=== PATIENT | male | born 1995 | race Caucasian/White ===

== ENCOUNTER 2020-12-11 13:40 | Emergency (ER) | payer BC, SELFPAY ==
[2020-12-11 13:53] VITALS: BP 120/67; PULSE 111; RESP 14; TEMP 36.7; O2SAT 99
[2020-12-11 15:42] LABS: Add Urine Microscopic? YES; Appearance Urine Cloudy (Clear); Bacteria Urine Trace /hpf; Bilirubin Urine Negative (Negative); Color Urine Yellow (Yellow); Glucose Urine UA Negative (Negative); Ketones Urine Negative (Negative); Leukocyte Esterase Ur 3+ LEU/UL (Negative); Mucus Urine Few /lpf; Nitrate Urine Negative (Negative); Protein Urine 1+ mg/dL (Negative); RBC Urine >75 /hpf (0-2); Specific Grav Ur 1.024 (1.001-1.035); WBC Urine >75 /hpf
--- NOTE | 2020-12-11 15:42 | ED.MALEGU ---
HPI - Male Genitourinary General Chief complaint: Urogenital-Male Stated complaint: PENILE D/C Time Seen by Provider: 12/11/20 14:21 Source: patient Mode of arrival: ambulatory Limitations: no limitations History of Present Illness HPI Narrative: This is a 25-year-old male that presents the emergency department for urethral discharge noted over the last couple of days. Reports painful urination. Denies fever, vomiting, other genital lesions, or hematuria. Related Data Allergies Allergy/AdvReac Type Severity Reaction Status Date / Time No Known Allergies Allergy Verified 12/11/20 14:29 Review of Systems Review of Systems: CONSTITUTIONAL: Denies fever GASTROINTESTINAL: Denies abdominal pain, nausea, vomiting GENITOURINARY: Reports dysuria. Denies hematuria. SKIN: Denies rash All systems reviewed & are unremarkable except as noted in HPI and below PMFSH Past Medical History Medical History (Updated 12/11/20 @ 16:29 by Gina Dumont PA-C) No active medical problems Social History Social History (Updated 12/11/20 @ 15:44 by Gina Dumont PA-C) Substance use: never Exam Narrative: GENERAL: Well-appearing, well-nourished, and in no acute distress. HEAD: Normocephalic, atraumatic. EYES: EOMI. CHEST: Clear to auscultation. No respiratory distress. No wheezes rales or rhonchi HEART: Regular rate and rhythm. No murmur heard. Normal peripheral pulses. ABDOMEN: Soft, nontender, nondistended, normal active bowel sounds. EXTREMITIES: Normal range of motion. No edema. SKIN: Warm, dry, no rash. NEURO: No focal deficits. Alert and oriented x3. PSYCH: Normal mood and affect MALE GENITAL: Clear/yellow urethral discharge noted. No other rashes or lesions. Testicles nontender Course Vital Signs Vital signs: Vital Signs Temperature 98.1 F 12/11/20 13:53 Pulse Rate 111 H 12/11/20 13:53 Respiratory Rate 14 12/11/20 13:53 Blood Pressure 120/67 12/11/20 13:53 Pulse Oximetry 99 12/11/20 13:53 Temperature 98.1 F 12/11/20 13:53 Pulse Rate 111 H 12/11/20 13:53 Respiratory Rate 14 12/11/20 13:53 Blood Pressure 120/67 12/11/20 13:53 Pulse Oximetry 99 12/11/20 13:53 MDM - Male Genitourinary MDM Narrative Medical decision making narrative: Patient presents to the emergency department for urethral discharge noted over the last couple of days. UA is consistent with infection. Patient will be treated with oral antibiotics for urethritis. He is to follow-up with primary doctor for further results of testing. He was given warnings to return to the ER Lab Data Attestation: I reviewed the patient's lab results. Labs: Lab Results 12/11/20 12/11/20 Range/Units 15:27 15:27 Urine Color Yellow (Yellow) Urine Appearance Cloudy H (Clear) Urine pH 7.0 (5.0-9.0) Ur Specific [place] 1.024 (1.001-1.035) Urine Protein 1+ H (Negative) mg/dL Urine Glucose (UA) Negative (Negative) mg/dL Urine Ketones Negative (Negative) mg/dL Ur Blood (Man) Negative (Negative) Urine Nitrate Negative (Negative) Urine Bilirubin Negative (Negative) Urine Urobilinogen 4.0 H (<2.0) mg/dL Leukocyte Esterase Rfl 3+ H (Negative) NAIDA/UL Urine RBC >75 H (0-2) /hpf Urine WBC >75 H /hpf Urine Bacteria Trace /hpf Urine Mucus Few H /lpf C.trachomatis RNA (TMA) Pending N.gonorrhoeae RNA (TMA) Pending T. vaginalis Amp RNA Pending Urine Characteristics Clear Critical Care Time Critical Care Time Critical Care Time: No Discharge Plan Discharge Clinical Impression: Epididymitis Patient Disposition: Home, Self-Care Condition: Stable Instructions: Antibiotic Form, Safe Sex Practices (ED), Epididymitis (ED) Additional Instructions: Return to the ER if you experience fever, abdominal pain with nausea and vomiting, you are unable to keep down liquids or solids, blood in the u
[2020-12-11 15:50] LABS: Blood Urine Negative (Negative)
[2020-12-11] MEDS: cefTRIAXone 1 GM VIAL 0.5 GM IM (16:26)
[2020-12-11 16:50] VITALS: BP 112/62; PULSE 94; RESP 16; O2SAT 99
== END 2020-12-11 16:50 | disposition home or self-care (01) ==
PROVIDERS: Physician Assistant; Emergency Provider Emergency Medicine
DX: N45.1 Epididymitis (principal)
CPT/HCPCS: 81001; 87086; 87491; 87591; 87661; 96372; 99283; J0696

== ENCOUNTER 2021-03-17 18:55 | Emergency (ER) | payer OTHER, BC, SELFPAY ==
--- NOTE | ~2021-03-17 | CT_ITS ---
EXAMINATION: CT brain wo con EXAM DATE: 03/17/2021 21:32 INDICATION: Right frontal head injury. TECHNIQUE: Spiral CT of the head was performed without contrast. Axial, coronal and sagittal images were reviewed. The dose-length product (DLP) for this examination was 605.33 mGy-cm. The exposure w as tailored according to patient size, and iterative reconstruction (ASIR) was used as additional dos e reduction technique. There is no prior study for comparison. FINDINGS: There is no acute intraparenchymal hemorrhage. No evidence of intraparenchymal brain mass lesion. No evidence of acute infarction. There is no mass effect or midline shift. The ventricles are normal in size. There are no extra-axial collections. There are no acute calvarial fractures. T he orbits are unremarkable. Right frontal laceration, contusion. The visualized sinuses and mastoid air cells are well aerated. IMPRESSION: 1. No acute intracranial findings. 2. Right frontal laceration, small amount of swelling. Reviewed, dictated and finalized at location [facility]. 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
[2021-03-17 19:14] VITALS: BP 146/77; PULSE 81; RESP 16; TEMP 36.6; O2SAT 100
--- NOTE | 2021-03-17 21:40 | ED.HEATRA ---
HPI - Head Injury General Chief complaint: Head Injury Stated complaint: HEAD INJURY Time Seen by Provider: 03/17/21 21:05 Source: patient Mode of arrival: ambulatory Limitations: no limitations History of Present Illness HPI Narrative: 25-year-old with no major medical problems here with complains of small laceration to the right side of the forehead. Patient states that he was hit with a door of the [employer] truck. Now complains of headache intermittent nausea. He also states that he cannot remember the events. Complaint: head injury and head pain Onset (ago): day(s) (6) Mechanism of Injury: other (Accidental) Place: work Loss of Consciousness: no Location of injury: frontal Severity: mild Quality: dull Radiation: none Other Injuries: none Related Data Allergies Allergy/AdvReac Type Severity Reaction Status Date / Time No Known Allergies Allergy Verified 03/17/21 20:56 Review of Systems Review of Systems: All systems reviewed & are unremarkable except as noted in HPI and below Constitutional: Constitutional: Reports no additional constitutional complaints Eyes: Eyes: Reports no additional eye complaints ENT: Reports system reviewed and no additional complaints, except as documented Cardiovascular: Cardiovascular: Reports no additional cardiovascular complaints Respiratory: Respiratory: Reports no additional respiratory complaints Gastrointestinal: Gastrointestinal: Reports no additional gastrointestinal complaints Musculoskeletal: Musculoskeletal: Reports no additional musculoskeletal complaints Integumentary/Breasts: Skin/Breast: Reports system reviewed and no additional complaints, except as docu Neurologic: Reports system reviewed and no additional complaints, except as documented PMFSH Past Medical History Medical History No active medical problems Social History Social History Substance use: never Exam Narrative: GENERAL: Well-appearing, well-nourished, and in no acute distress. HEAD: Normocephalic, atraumatic. Small laceration noted on the right side of the forehead with no active bleeding EYES: PERRLA and EOMI. ENT: Nares clear, no rhinorrhea or epistaxis. Mucous membranes moist. NECK: Supple. CHEST: Clear to auscultation. No respiratory distress. HEART: Regular rate and rhythm. No murmur heard. Normal peripheral pulses. EXTREMITIES: Normal range of motion. No edema. SKIN: Warm, dry, no rash. NEURO: No focal deficits. Alert and oriented x3. PSYCH: Normal mood and affect. Course Course Emergency Course: Patient comfortably sitting on the bed in no discomfort playing on his phone. Informed him about his CT findings. Advised him to take Tylenol for pain as needed follow-up with his primary doctor Vital Signs Vital signs: Vital Signs Temperature 36.6 C 03/17/21 19:14 Pulse Rate 81 03/17/21 19:14 Respiratory Rate 16 03/17/21 19:14 Blood Pressure 146/77 H 03/17/21 19:14 Pulse Oximetry 100 03/17/21 19:14 Temperature 36.6 C 03/17/21 19:14 Pulse Rate 81 03/17/21 19:14 Respiratory Rate 16 03/17/21 19:14 Blood Pressure 146/77 H 03/17/21 19:14 Pulse Oximetry 100 03/17/21 19:14 MDM - Head Injury Imaging Data Radiologist's impression: ITS Impressions Head CT 03/17/21 21:35 IMPRESSION: 1. No acute intracranial findings. 2. Right frontal laceration, small amount of swelling. Discharge Plan Discharge Clinical Impression: Minor head injury Qualifiers: Encounter type: initial encounter Qualified Code(s): S09.90XA - Unspecified injury of head, initial encounter Laceration of face Qualifiers: Encounter type: initial encounter Qualified Code(s): S01.81XA - Laceration without foreign body of other part of head, initial encounter Patient Disposition: Home, Self-Care Condition: Stable Instructions: Antibioti
== END 2021-03-17 21:57 | disposition home or self-care (01) ==
PROVIDERS: Emergency Provider Family Medicine
DX: S01.81XA Laceration without foreign body of other part of head, initial encounter (principal); W20.8XXA Other cause of strike by thrown, projected or falling object, initial encounter
CPT/HCPCS: 70450; 99284

== ENCOUNTER 2021-10-12 12:16 | Emergency (ER) | payer BC, SELFPAY ==
--- NOTE | ~2021-10-12 | CT_ITS ---
EXAMINATION: CT brain wo con DATE: 10/12/2021 12:52 INDICATION: Headache TECHNIQUE: Computed tomography (CT) of the head was performed without intravenous contrast. The mA wa s adjusted according to patient size. Iterative reconstruction technique was employed. Exam dose: 60 5.33 mGy-cm total exam DLP. COMPARISON: 03/17/2021 CT brain FINDINGS: No intracranial mass lesion or hemorrhage or cerebrovascular accident. No midline shift or mass effect. Normal arriola-white matter differentiation. Normal ventricular size. No subdural or epidur al hematoma is detected. No fracture or bone destruction of the cranial vault. Minimal focal soft tissue thickening is noted in the ethmoid regions included paranasal sinuses and m astoid air cells are otherwise normally developed and aerated. IMPRESSION: No significant intracranial abnormality Reviewed, dictated and finalized at [facility]. Reviewed, dictated and finalized at location [facility].
[2021-10-12 12:18] VITALS: BP 138/81; PULSE 64; RESP 20; TEMP 36.6; O2SAT 98
--- NOTE | 2021-10-12 12:42 | ED.DENTAL ---
HPI - Dental/Oral General Chief complaint: Dental/Oral Stated complaint: headache Time Seen by Provider: 10/12/21 12:25 Source: patient Mode of arrival: ambulatory Limitations: no limitations History of Present Illness HPI Narrative: This is a 26-year-old male that presents to the emergency department for a headache present over the last couple of weeks. Reports it is associated with a bad tooth. He has been seeing a dentist for this. He finished a round of antibiotics with little relief. He is scheduled to see an oral surgeon, but they were not available until December. Denies fever, vomiting, numbness, or weakness. MD Complaint: tooth pain Location: Tooth # (17) Related Data Allergies Allergy/AdvReac Type Severity Reaction Status Date / Time No Known Allergies Allergy Verified 03/17/21 20:56 Review of Systems Review of Systems: CONSTITUTIONAL: Denies fever ENT: Reports dentalgia EYES: Denies visual changes GASTROINTESTINAL: Denies vomiting NEUROLOGIC: Reports headache. Denies numbness, or weakness. All systems reviewed & are unremarkable except as noted in HPI and below PMFSH Past Medical History Medical History No active medical problems Social History Social History Substance use: never Exam Narrative: GENERAL: Well-appearing, well-nourished, and in no acute distress. HEAD: Normocephalic, atraumatic. EYES: PERRLA and EOMI. ENT: Nares clear, no rhinorrhea or epistaxis. Mucous membranes moist. Oropharynx without tonsillar hypertrophy exudate or other lesions. Bilateral TMs pearly arriola non-bulging. Tooth #17 is broken, no surrounding erythema or edema to suggest abscess NECK: Supple. No adenopathy or masses. CHEST: Clear to auscultation. No respiratory distress. No wheezes rales or rhonchi HEART: Regular rate and rhythm. No murmur heard. Normal peripheral pulses. EXTREMITIES: Normal range of motion. No edema. SKIN: Warm, dry, no rash. NEURO: No focal deficits. Alert and oriented x3. Cranial nerves II through XII grossly intact PSYCH: Normal mood and affect Course Vital Signs Vital signs: Vital Signs Temperature 97.9 F 10/12/21 12:18 Pulse Rate 64 10/12/21 12:18 Respiratory Rate 20 10/12/21 12:18 Blood Pressure 138/81 10/12/21 12:18 Pulse Oximetry 98 10/12/21 12:18 Oxygen Delivery Room Air 10/12/21 12:18 Temperature 97.9 F 10/12/21 12:18 Pulse Rate 64 10/12/21 12:18 Respiratory Rate 20 10/12/21 12:18 Blood Pressure 138/81 10/12/21 12:18 Pulse Oximetry 98 10/12/21 12:18 Oxygen Delivery Room Air 10/12/21 12:18 MDM - Dental/Oral MDM Narrative Medical decision making narrative: Patient presents to the emergency department for ongoing headaches associated with dental pain. No evidence for abscess on exam. He is afebrile and nontoxic-appearing. He is neurologically intact. CT scan of the brain is without concerning findings. Patient instructed to follow back up with his dentist. Reports improvement with Toradol and Tylenol. He was given warnings to return to the ER Imaging Data Radiologist's impression: ITS Impressions Head CT 10/12/21 12:54 IMPRESSION: No significant intracranial abnormality Critical Care Time Critical Care Time Critical Care Time: No Discharge Plan Discharge Clinical Impression: Toothache Headache Qualifiers: Headache type: unspecified Headache chronicity pattern: acute headache Intractability: not intractable Qualified Code(s): R51.9 - Headache, unspecified Patient Disposition: Home, Self-Care Condition: Stable Instructions: Acute Headache (ED), Toothache (ED) Additional Instructions: Return to the emergency department if you experience fever, vision changes, vomiting, sudden onset numbness or weakness, or any other symptoms that are concerning to you Tylenol as needed for pain.
[2021-10-12] MEDS: ONDANSETRON HCL ODT 4 MG TABLET PO (13:14)
[2021-10-12] MEDS: ACETAMINOPHEN 500 MG TABLET 1000 MG PO (13:14)
[2021-10-12] MEDS: KETOROLAC (*BKC) 60 MG/2 ML VIAL IM (13:14)
--- NOTE | 2021-10-12 13:18 | PC.NURSE ---
walked in an patient is pacing around the room running his hands over his head. He then sits down and is facetiming with his friends. he then got up and was pacing the room again.
== END 2021-10-12 14:44 | disposition home or self-care (01) ==
PROVIDERS: Emergency Provider Family Medicine
DX: R51.9 Headache, unspecified (principal); K08.89 Other specified disorders of teeth and supporting structures
CPT/HCPCS: 70450; 96372; 99284; A9270; J1885

== ENCOUNTER 2021-11-06 11:07 | Emergency (ER) | payer BC, SELFPAY ==
[2021-11-06 11:10] VITALS: BP 129/78; PULSE 97; RESP 14; TEMP 36.3; O2SAT 98
--- NOTE | 2021-11-06 11:12 | ED.DENTAL ---
HPI - Dental/Oral General Chief complaint: Dental/Oral Stated complaint: Toothache Time Seen by Provider: 11/06/21 11:15 Source: patient, RN notes reviewed and old records reviewed Mode of arrival: ambulatory Limitations: no limitations History of Present Illness HPI Narrative: 26-year-old male presents to the [facility] with left dental pain. States that he has seen dental school. Patient states that he needs someone to move up his appointment or to pull his tooth that is causing him issues. Decay noted to the posterior molar with surrounding erythema. Patient states he has used Anbesol with minimal relief. Patient is not a very good historian. MD Complaint: tooth pain Related Data Allergies Allergy/AdvReac Type Severity Reaction Status Date / Time No Known Allergies Allergy Verified 11/06/21 11:19 Review of Systems Review of Systems: All systems reviewed & are unremarkable except as noted in HPI and below Constitutional: Constitutional: Reports no additional constitutional complaints, Denies chills and Denies fever(s) Eyes: Eyes: Reports no additional eye complaints ENT: Reports as per HPI Comments: Dental pain Cardiovascular: Cardiovascular: Reports no additional cardiovascular complaints, Denies chest pain and Denies dyspnea Respiratory: Respiratory: Reports no additional respiratory complaints, Denies cough and Denies dyspnea Musculoskeletal: Musculoskeletal: Reports no additional musculoskeletal complaints Integumentary/Breasts: Skin/Breast: Reports system reviewed and no additional complaints, except as docu Neurologic: Reports system reviewed and no additional complaints, except as documented Psychiatric: Psychiatric: Reports no additional psychiatric complaints Allergic/Immunologic: Allergic/Immunologic: Reports no additional allergic/immunologic complaints PMFSH Past Medical History Medical History No active medical problems Social History Social History (Updated 11/06/21 @ 19:56 by Barbi Sanz APRN) Smoking status: Current every day smoker Substance use: current Substance use type: marijuana Living arrangements: with family Gender identity (if verbalized by the patient): Male Comments At the time of my signature, I reviewed and agree with the nursing past medical, surgical, social, and family history. There is no relevant family history pertinent to the patient complaint. Exam Const: General: healthy appearing, no acute distress and alert Nutritional Appearance: well nourished Orientation/consciousness: patient oriented x3 Limitations: no limitations HENMT: Head: normal to inspection Ears: external ears normal, TM's normal bilaterally and EAC's normal General nose exam: Normal external nose present and Normal nasal mucous membranes and turbinates present Face and sinus: normal facial exam Mouth: Yes Normal oral and palatal mucosa present, Yes lip normal and Yes moist mucous membranes Teeth and gingiva: poor dentition Throat: posterior oropharynx normal, tonsils normal and uvula midline Other: Poor dentition with multiple decayed teeth, right posterior molar upper and lower decayed to the gumline. Chipped. Surrounding erythema of the gingiva. Eyes: Conjunctivae: conjunctivae normal Pupils: Equal, round and reactive pupils present Neck: Neck: normal visual inspection, no lymphadenopathy and no meningeal signs Chest: Chest palpation & inspection: normal inspection of the chest Resp: Effort & Inspection: normal respiratory effort Auscultation: clear to auscultation bilaterally Cardio: Rate: regular rate Rhythm: regular rhythm Skin: General skin exam: normal color Rashes: no rashes Wounds: no wounds Neuro: General: patient oriented x3, moves all extremities, no meningeal signs and no focal motor deficits Cranial nerves: Yes Equal, round and reactive pupils present Speech: normal speech Gait exam (Neuro): No
== END 2021-11-06 11:27 | disposition home or self-care (01) ==
PROVIDERS: Emergency Provider Nurse Practitioner
DX: K02.9 Dental caries, unspecified (principal); K04.7 Periapical abscess without sinus; F17.200 Nicotine dependence, unspecified, uncomplicated
CPT/HCPCS: 99213; G0463

== ENCOUNTER 2021-11-06 12:33 | Emergency (ER) | payer BC, SELFPAY ==
[2021-11-06 12:49] VITALS: BP 120/84; PULSE 86; RESP 20; TEMP 36.9; O2SAT 98
--- NOTE | 2021-11-06 13:31 | ED.DENTAL ---
HPI - Dental/Oral General Chief complaint: Dental/Oral Stated complaint: tooth pain Time Seen by Provider: 11/06/21 13:08 History of Present Illness HPI Narrative: Patient is a 26-year-old male here for evaluation of dental pain. He states that he has a history of impacted wisdom teeth, and has had seen a dentist multiple times in the past, and was told that he needs to see a facial surgeon to get these removed. He presents today due to his chronic pain that has been there for several months. He denies any trismus, facial swelling, shortness of breath, fevers or chills. Has been attempting ibuprofen and Tylenol and has been placed on numerous rounds of antibiotics. Denies further complaints. Related Data Allergies Allergy/AdvReac Type Severity Reaction Status Date / Time No Known Allergies Allergy Verified 11/06/21 11:19 Review of Systems Review of Systems: Gen.: Denies fevers or chills Eyes: Denies eye pain or visual change ENT: Reports tooth ache. Denies congestion Respiratory: Denies shortness of breath or cough CV: Denies chest pain or palpitations GI: Denies abdominal pain nausea, emesis or diarrhea denies burning, urgency, frequency or hematuria Musculoskeletal: Denies back pain or muscle pain Neuro: Denies numbness, tingling, weakness or focal weakness Skin: Denies rash Except as documented, all other systems reviewed and negative PMFSH Past Medical History Medical History No active medical problems Social History Social History Substance use: never Exam Narrative: Gen: alert, oriented, no acute distress Eyes: EOMI, no icterus ENT: tooth 32 and 17 with dental caries, no periapical abscess noted, no trismus, no submandibular swelling Pulm: Respirations even and unlabored, symmetric thorax expansion, no audible stridor or visible cyanosis GI: No distension, no voluntary/involuntary guarding Neuro: AOx4, moves all extremities without apparent difficulty or weakness, follows commands Skin: No jaundice, no visible bruising, rashes, lesions or wounds on exposed skin Psych: Normal mood/affect, insight/judgement good, adequate fund of knowledge, recent/remote memory intact Course Vital Signs Vital signs: Vital Signs Temperature 98.4 F 11/06/21 12:49 Pulse Rate 86 11/06/21 12:49 Respiratory Rate 20 11/06/21 12:49 Blood Pressure 120/84 11/06/21 12:49 Pulse Oximetry 98 11/06/21 12:49 Oxygen Delivery Room Air 11/06/21 12:49 Temperature 98.4 F 11/06/21 12:49 Pulse Rate 86 11/06/21 12:49 Respiratory Rate 20 11/06/21 12:49 Blood Pressure 120/84 11/06/21 12:49 Pulse Oximetry 98 11/06/21 12:49 Oxygen Delivery Room Air 11/06/21 12:49 MDM - Dental/Oral MDM Narrative Medical decision making narrative: 26-year-old male here for evaluation of chronic dental pain. He is nontoxic-appearing with normal vital signs. suspect dental abdirahman. Patient not immunosuppressed, afebrile and well appearing with patent airway, have low suspicion for deep space infection or any concern for airway compromise. Based on history, physical, and work up. No evidence of tooth fracture, avulsion, or bleeding socket. No evidence of RPA, CUSTOMER CONTACT SPECIALIST, Trever?s angina, periapical abscess. Instructed patient to continue to treat pain with ibuprofen/acetaminophen until they see a dentist. patient has been on numerous rounds of abx, defer treatment to dentist, no evidence of infection. Patient discharged home and will follow up with dentist. Discussed return precautions for odontogenic infections and other dental pain emergencies. Discharge Plan Discharge Clinical Impression: Dental caries Patient Disposition: Home, Self-Care Condition: Stable Instructions: Antibiotic Form, Toothache (ED) Additional Instructions: Your dental pain will ultimately need to be managed by a surgeon. In the
[2021-11-06] MEDS: ACETAMINOPHEN 325 MG TABLET 650 MG PO (13:46)
[2021-11-06] MEDS: KETOROLAC 30 MG/ML VIAL (*BKC) IM (13:47)
== END 2021-11-06 13:57 | disposition home or self-care (01) ==
PROVIDERS: Emergency Provider Emergency Medicine
DX: K02.9 Dental caries, unspecified (principal)
CPT/HCPCS: 96372; 99283; A9270; J1885

== ENCOUNTER 2022-11-15 06:26 | Emergency (ER) | payer BC, SELFPAY ==
[2022-11-15] VITALS (15 sets, daily range): BP systolic 102–132; BP diastolic 52–89; PULSE 59–85; RESP 14–20; TEMP 36.9; O2SAT 97–100
--- NOTE | ~2022-11-15 | CT_ITS ---
EXAMINATION: CT brain wo con DATE: 11/15/2022 08:23 INDICATION: Headache TECHNIQUE: Computed tomography (CT) of the head was performed without intravenous contrast. Sagittal and coronal reconstructions were performed. The mA was adjusted according to patient size. Iterative reconstruction technique was employed. The dose-length product was 605.33 mGy-cm. COMPARISON: head CT dated 10/12/2021 FINDINGS: No acute intracranial hemorrhage, acute infarction or abnormal extra axial fluid collection. Ventricl es are normal and symmetric. No mass/mass effect. The orbits, paranasal sinuses and mastoid air cells are normal. IMPRESSION: 1. Normal head CT. Reviewed, dictated and finalized at location A. IMPRESSION: 1. Normal head CT.
[2022-11-15] MEDS: PROCHLORPERAZINE EDISYLATE 10 MG/2 ML VIAL IV PUSH (08:10)
[2022-11-15] MEDS: SODIUM CHLORIDE 0.9% IV 1,000 ML 999 ML IV CONT (08:10)
[2022-11-15] MEDS: diphenhydrAMINE HCl INJ 50 MG/ML VIAL 25 MG IV PUSH (08:10)
--- NOTE | 2022-11-15 08:17 | PC.NURSE ---
Pt requesting to answer his cell phone while nurse drawing blood. Pt advised to allow staff to do orders before talking on cell phone.
[2022-11-15 08:20] LABS: Basophils Absolute Auto 0.1 K/mm3 (0.0-0.1); Basophils Percent Auto 0.9 % (0.2-1.2); Eosinophils Absolute Auto 0.3 K/mm3 (0-0.3); Eosinophils Percent Auto 3.7 % (0-4.4); Hemoglobin 14.8 g/dL (14.0-18.0); Immature Granulocyte Absolute 0.02 K/mm3 (0.00-0.031); Immature Granulocyte Percent A 0.3 % (0-0.5); Lymphocytes Absolute Auto 2.04 K/mm3 (0.9-3.2); Lymphocytes Percent Auto 26.7 % (18.3-44.2); Mean Corpuscular HGB Conc 34.4 g/dl (32-36); Mean Corpuscular Hemoglobin 32.5 pg (26-34); Mean Corpuscular Volume 94.5 fl (80-100); Mean Platelet Volume 8.9 fl (7.4-10.4); Monocytes Absolute Auto 0.7 K/mm3 (0.1-0.6); Monocytes Percent Auto 8.7 % (2.6-8.5); Neutrophils Absolute Auto 4.6 K/mm3 (1.3-6.7); Neutrophils Percent Auto 59.7 % (45.5-73.1); Platelet Count Result 239 k/mm3 (150-375); Red Blood Count 4.55 M/mm3 (4.6-6.20); Red Cell Distribution Width 12.1 % (11.5-14.5); White Blood Count 7.6 K/mm3 (4.5-10.0)
[2022-11-15 08:32] LABS: Alanine Aminotransferase 15 U/L (6-50); Albumin Level 4.3 g/dL (3.5-5.1); Alkaline Phosphatase 48 U/L (38-126); Anion Gap 7 mmol/L (8-16); Aspartate Amino Transferase 23 U/L (17-59); Bilirubin,Total 0.5 mg/dL (0.2-1.3); Blood Urea Nitrogen 8 mg/dL (9-20); Calcium 8.7 mg/dL (8.4-10.2); Carbon Dioxide 29 mmol/L (22-30); Chloride 103 mmol/L (98-107); Estimated CRCL calculation 103 ml/min; Estimated Glomerular Filt Rate > 60; Glucose 100 mg/dL (65-110); Potassium 3.8 mmol/L (3.4-5.0); Sodium 139 mmol/L (137-145)
[2022-11-15 08:34] LABS: CRP < 0.5 mg/dL (<1.0)
[2022-11-15 08:44] LABS: Erythrocyte Sedimentation Rate 1 mm/hr (0-20)
[2022-11-15] MEDS: KETOROLAC 30 MG/ML VIAL (*BKC) IV PUSH (08:57)
--- NOTE | 2022-11-15 10:28 | ED.HA ---
HPI - Headache General Chief Complaint: Headache Stated Complaint: headache Time Seen by Provider: 11/15/22 07:02 History of Present Illness HPI Narrative: This is a 27-year-old male, with no significant past medical history, who presents emergency department complaining of headache since approximately 1 AM this morning. The patient states the headache is sharp, primarily on the right side without radiation. This is associated with blurred vision but without loss of vision. He denies recent head injury or weakness/numbness. Related Data Allergies Allergy/AdvReac Type Severity Reaction Status Date / Time No Known Allergies Allergy Verified 11/15/22 06:47 Review of Systems Review of Systems: CONSTITUTIONAL: Denies fever, chills, or sweats. EYES: Blurred vision denies redness, or discharge. ENT: Denies rhinorrhea, congestion, sore throat, or otalgia. CARDIOVASCULAR: Denies chest pain, palpitations, or edema. RESPIRATORY: Denies cough or dyspnea. GASTROINTESTINAL: Denies abdominal pain, nausea, vomiting, or diarrhea. GENITOURINARY: Denies dysuria or hematuria. SKIN: Denies rash or itching. MUSCULOSKELETAL: Denies back pain, joint pain, or myalgia. NEUROLOGIC: Headache denies numbness, dizziness, or weakness. PSYCHIATRIC: Denies anxiety or depression. PMFSH Past Medical History Medical History No active medical problems Social History Social History Smoking status: Current every day smoker Substance use: current Substance use type: marijuana Living arrangements: with family Gender identity (if verbalized by the patient): Male Exam Narrative: GENERAL: Well-developed, well-nourished, and in no acute distress. HEAD: Normocephalic, atraumatic. EYES: PERRLA and EOMI. ENT: Nares clear, no rhinorrhea or epistaxis. Mucous membranes moist. Oropharynx without tonsillar hypertrophy exudate or other lesions. Bilateral TMs pearly arriola nonbulging NECK: Supple. CHEST: Clear to auscultation. No respiratory distress. No wheezes rales or rhonchi HEART: Regular rate and rhythm. No murmur heard. Normal peripheral pulses. ABDOMEN: Soft, nontender, nondistended, normal active bowel sounds. EXTREMITIES: Normal range of motion. No edema. SKIN: Warm, dry, no rash. NEURO: Alert and oriented x3. Strength 5/5 in all extremities, sensation intact bilaterally, no noted ataxia, cranial nerves II through XII intact PSYCH: Normal mood and affect. Course Course Emergency Course: :55 - CT head unremarkable labs including CRP and ESR unremarkable. On reevaluation, the patient states his pain is improved. He also notes a painful right mandibular molar for the past day. He states he has an appointment with a dentist tomorrow. Exam is consistent with dental abscess at tooth #31. I suspect the patient's headache may be related to dental abscess versus migraine. Will discharge with antibiotics and recommendation to follow-up with his dentist. Discussed return and emergency precautions including signs/symptoms of meningitis. The patient voiced understanding and is comfortable with the plan. All questions answered to his satisfaction. Vital Signs Vital signs: Vital Signs Temperature 98.4 F 11/15/22 06:27 Pulse Rate 74 11/15/22 06:27 Respiratory Rate 16 11/15/22 06:27 Blood Pressure 132/89 11/15/22 06:27 Pulse Oximetry 99 11/15/22 06:27 Oxygen Delivery Room Air 11/15/22 06:27 Temperature 98.4 F 11/15/22 06:27 Pulse Rate 75 11/15/22 10:42 Respiratory Rate 20 11/15/22 10:42 Blood Pressure 110/57 L 11/15/22 10:42 Pulse Oximetry 99 11/15/22 10:42 Oxygen Delivery Room Air 11/15/22 06:27 MDM - Headache MDM Narrative Medical decision making narrative: Plan: Labs, imaging, pain control, reassess Differential Diagnosis Differential diagnosis: Likely migraine, tension he
== END 2022-11-15 10:44 | disposition home or self-care (01) ==
PROVIDERS: Emergency Provider Preventive Medicine Aerospace Medicine
DX: K04.7 Periapical abscess without sinus (principal); R51.9 Headache, unspecified; F17.200 Nicotine dependence, unspecified, uncomplicated
CPT/HCPCS: 36415; 70450; 80053; 85025; 85652; 86140; 96361; 96374; 96375; 99284; J0780; J1200; J1885; J7030